=== PATIENT | female | born 1970 | race Caucasian/White ===

== ENCOUNTER 2016-09-16 20:44 | Observation (INO) | payer MEDICAID ==
[~2016-09-16] VITALS: Ht 160 cm; Wt 80.0 kg
[2016-09-16] MEDS ORDERED: MIRT15TA PO (20:57)
[2016-09-16] MEDS ORDERED: GABA100C8 PO (20:57)
[2016-09-16] MEDS ORDERED: OLAN10TA3 PO (20:57)
[2016-09-16] MEDS ORDERED: OLAN5TAB3 PO (21:37)
[2016-09-16] MEDS ORDERED: VENL150C PO (21:37)
[2016-09-16 22:00] LABS: HEMOGLOBIN 13.9 g/dL (11.7-16.4)
[2016-09-16 22:09] LABS: BLOOD UREA NITROGEN 19 mg/dL (7-18)
[2016-09-16 22:11] LABS: ACETAMINOPHEN < 2 mcg/mL (10-30)
[2016-09-16 22:30] LABS: DAU SCREEN DISCLAIMER
[2016-09-16 22:47] LABS: PATH.CAST-FLAG NOT PRESENT; SPERM-FLAG NOT PRESENT; SRC-FLAG NOT PRESENT; XTAL-FLAG NOT PRESENT; YLC-FLAG NOT PRESENT
[2016-09-16 23:45] LABS: PATH.CAST-FLAG NOT PRESENT; SPERM-FLAG NOT PRESENT; SRC-FLAG NOT PRESENT; XTAL-FLAG NOT PRESENT; YLC-FLAG NOT PRESENT
[2016-09-17] MEDS ORDERED: ONDANSETRON ODT 4 MG PO PRN (03:00)
[2016-09-17] MEDS ORDERED: ACETAMINOPHEN 325 MG TABLET PO PRN (03:00)
[2016-09-17] MEDS ORDERED: DOCUSATE 100 MG CAPSULE PO PRN (03:00)
[2016-09-17] MEDS ORDERED: NICOTINE 7 MG/24 HR PATCH.TD24 TD SCH (03:00)
[2016-09-17] MEDS ORDERED: OLANZAPINE 10 MG TABLET PO SCH (03:30)
[2016-09-17 07:38] VITALS: BP 120/77
[2016-09-17] MEDS: GABAPENTIN 300 MG CAPSULE PO SCH ×3 (08:08→16:28)
[2016-09-17] MEDS ORDERED: VENLAFAXINE 75 MG CAP ER PO SCH (09:00)
[2016-09-17] MEDS ORDERED: OLANZAPINE 5 MG TABLET PO SCH (09:00)
[2016-09-17] MEDS ORDERED: MIRTAZAPINE 15 MG TABLET PO SCH (09:00)
[2016-09-17 13:55] LABS: HCG UR OBC PASS
[2016-09-17] MEDS ORDERED: DOCU-30 PO (14:57)
== END 2016-09-17 17:08 ==
LOC: ED 23:59 → EDIP 09-17 02:57 → 3E 09-17 03:30
PROVIDERS: ADMIT Internal Medicine; ATTEND Internal Medicine
DX: R45.851 Suicidal ideations (principal); F31.9 Bipolar disorder, unspecified; E44.0 Moderate protein-calorie malnutrition; R44.0 Auditory hallucinations; F12.10 Cannabis abuse, uncomplicated; Z87.891 Personal history of nicotine dependence; Z98.890 Other specified postprocedural states
CPT/HCPCS: 36415; 80048; 80307; 80329; 81001; 81025; 82040; 84439; 84443; 85025; 87086; 99285; G0378; G0480